=== PATIENT | male | born 1995 | race Caucasian/White ===

== ENCOUNTER 2017-04-09 19:47 | Emergency (ER) | payer OTHER ==
[~2017-04-09] VITALS: Ht 180.3 cm; Wt 97.5 kg
[2017-04-09] MEDS ORDERED: NORCO 5-325 TA1 EACH PO (20:55)
[2017-04-09] MEDS ORDERED: IBUPROFEN 600600 M1 PO (20:55)
[2017-04-09 22:11] VITALS: BP 125/74
== END 2017-04-09 22:11 | disposition home or self-care (01) ==
LOC: ER 19:47
DX: S43.084A Other dislocation of right shoulder joint, initial encounter (principal); W18.39XA Other fall on same level, initial encounter; Y93.51 Activity, roller skating (inline) and skateboarding; Y92.89 Other specified places as the place of occurrence of the external cause; Y99.8 Other external cause status

== ENCOUNTER 2017-07-30 16:43 | Emergency (ER) | payer OTHER ==
[~2017-07-30] VITALS: Ht 182.9 cm; Wt 93.0 kg
[~2017-07-30 16:43] MED LIST: IBUPROFEN 600600 M1 PO; NORCO 5-325 TA1 EACH PO
[2017-07-30 18:03] LABS: URINE BILIRUBIN NEGATIVE (Negative); URINE BLOOD 2+ (Negative); URINE COLOR YELLOW; URINE GLUCOSE-RANDOM* NEGATIVE (Negative); URINE KETONES NEGATIVE (Negative); URINE NITRITE NEGATIVE (Negative); URINE PROTEIN (DIPSTICK) NEGATIVE (Negative); URINE SPECIFIC GRAVITY <= 1.005 (1.003-1.035); URINE UROBILINOGEN 0.2 E.U./dl (0.2-1.0)
[2017-07-30 18:18] LABS: CASTS None Seen /LPF (None Seen); CRYSTALS None Seen /LPF (None Seen); SQUAMOUS None Seen /LPF (0-3); URINE RBC 3-10 Few /HPF (0-2); URINE WBC >25 Many /HPF (0-5)
[2017-07-30 18:19] LABS: BACTERIA None Seen /HPF (None Seen)
[2017-07-30] MEDS ORDERED: KEFLEX500 MG PO (18:46)
[2017-07-30 19:09] VITALS: BP 124/77
== END 2017-07-30 19:11 | disposition home or self-care (01) ==
LOC: ER 16:43
PROVIDERS: Physician Assistant
DX: J06.9 Acute upper respiratory infection, unspecified (principal); N39.0 Urinary tract infection, site not specified

== ENCOUNTER 2017-08-17 10:30 | Emergency (ER) | payer OTHER ==
[~2017-08-17] VITALS: Ht 182.9 cm; Wt 95.3 kg
[~2017-08-17 10:30] MED LIST changes: +KEFLEX500 MG PO
[2017-08-17 10:36] VITALS: BP 150/72
[2017-08-17 11:04] LABS: URINE BILIRUBIN NEGATIVE (Negative); URINE BLOOD 1+ (Negative); URINE COLOR YELLOW; URINE GLUCOSE-RANDOM* NEGATIVE (Negative); URINE KETONES NEGATIVE (Negative); URINE PROTEIN (DIPSTICK) NEGATIVE (Negative); URINE UROBILINOGEN 0.2 E.U./dl (0.2-1.0)
[2017-08-17 11:06] LABS: URINE LEUKOCYTES-REFLEX 1+ (Negative)
[2017-08-17 11:14] LABS: CASTS None Seen /LPF (None Seen); CRYSTALS None Seen /LPF (None Seen); SQUAMOUS None Seen /LPF (0-3); URINE RBC 0-2 Rare /HPF (0-2); URINE WBC-REFLEX >25 Many /HPF (0-5)
[2017-08-17] MEDS ORDERED: BACTRIM DS TAB1 EACH PO (11:24)
== END 2017-08-17 12:43 | disposition home or self-care (01) ==
LOC: ER 10:30
PROVIDERS: Physician Assistant
DX: N39.0 Urinary tract infection, site not specified (principal)